=== PATIENT | male | born 1975 | race Caucasian/White ===

== ENCOUNTER 2022-10-17 18:56 | Emergency (ER) | payer OTHER, SELFPAY ==
[2022-10-17] MEDS ORDERED: Boostrix 0.5 ML (Tdap) VIAL (>/=7 yrs of age) ONE (20:54)
== END 2022-10-17 20:56 | disposition home or self-care (01) ==
LOC: CSHERS 18:56
DX: S51.851A Open bite of right forearm, initial encounter (principal); F17.210 Nicotine dependence, cigarettes, uncomplicated; I10 Essential (primary) hypertension; W54.0XXA Bitten by dog, initial encounter
CPT/HCPCS: 90471; 90715